=== PATIENT | female | born 1970 | race Caucasian/White ===

== ENCOUNTER 2017-10-15 09:39 | Emergency (ER) | payer BC, OTHER ==
[~2017-10-15] VITALS: Ht 152.4 cm; Wt 58.2 kg
[2017-10-15 09:44] VITALS: TEMP 36.4; Ht 152.4 cm; Wt 58.2 kg
[2017-10-15] MEDS ORDERED: KETOROLAC TROMETHAMINE 30 MG/ML VIAL IV STA (10:05)
[2017-10-15] MEDS ORDERED: FLX/5 PO (10:10)
[2017-10-15 10:30] LABS: BASO % 0.2 %; BASO ABS # 0.01 K/uL (0-0.2); EOS % 1.6 %; EOS ABS # 0.09 K/uL (0-0.5); HEMATOCRIT 38.4 % (37-47); HEMOGLOBIN 13.2 g/dL (12.0-16.0); IG# 0.01 K/uL (0.00-0.02); LYMPH % 22.5 %; LYMPH ABS # 1.23 K/uL (1.2-3.4); MEAN CELL VOLUME 88.7 fL (80-100); MEAN CORPUSCULAR HEMOGLOBIN 30.5 pg (25-34); MEAN CORPUSCULAR HGB CONC 34.4 g/dl (32-36); MEAN PLATELET VOLUME 9.3 fL (7.4-10.4); MONO ABS # 0.44 K/uL (0.11-0.59); NEUT % 67.5 %; NEUT ABS # 3.69 K/uL (1.4-6.5); PLATELET COUNT 160 K/uL (130-400); RED CELL DISTRIBUTION WIDTH CV 13.8 % (11.5-14.5); WHITE BLOOD COUNT 5.47 K/uL (4.8-10.8)
[2017-10-15 10:47] LABS: ALBUMIN 3.4 gm/dl (3.4-5.0); ALT/SGPT 18 U/L (12-78); AST/SGOT 14 U/L (15-37); BLOOD UREA NITROGEN 19 mg/dl (7-18); CALCIUM 8.7 mg/dl (8.5-10.1); CARBON DIOXIDE 26 mmol/L (21-32); CREATININE 0.87 mg/dl (0.60-1.20); GLUCOSE 94 mg/dl (70-99); SODIUM 140 mmol/L (136-145)
[2017-10-15 10:52] LABS: ALKALINE PHOSPHATASE 38 U/L (45-117); TOTAL PROTEIN 6.3 gm/dl (6.4-8.2)
--- NOTE | 2017-10-15 11:31 | DIAGNOSTIC IMAGING REPORT ---
MRI LUMBAR SPINE W/O CONTRAST CLINICAL HISTORY: Severe low back pain with left leg radiculopathy. Difficulty with ambulation. Syncope due to extreme pain. TECHNIQUE: Sagittal and axial T1, T2 and STIR images were obtained. COMPARISON STUDY: No previous studies for comparison. OBSERVATIONS: On the sagittal images there is a right adnexal fluid fluid level, likely secondary to a hemorrhagic ovarian cyst. The vertebral bodies and posterior elements appear intact. There is no abnormal bony signal present to suggest a marrow replacement process. L1-2: No disc protrusions or extrusions. No evidence of spinal canal or neural foraminal compromise. L2-3: No disc protrusions or extrusions. No evidence of spinal canal or neural foraminal compromise. L3-4: No disc protrusions or extrusions. No evidence of spinal canal or neural foraminal compromise. L4-5: There is a mild circumference of disc bulge. There is a slight triangular configuration of the thecal sac. There is no significant foraminal narrowing L5-S1: There is a small central disc protrusion asymmetric to the left. There is no spinal stenosis. There is minimal left-sided foraminal narrowing. The conus medullaris and cauda equina appear normal. IMPRESSION: 1. Mild multilevel spondylitic changes. Mild circumferential disc bulge at the L4-5 level. Small disc protrusion slightly asymmetric to the left at the L5-S1 level.. Minimal left-sided foraminal narrowing at the L5-S1 level 2. Partially visualized right adnexal fluid fluid level, likely secondary to a hemorrhagic ovarian cyst Electronically signed by: Sadi Keita M.D. 10/15/2017 11:29 AM Dictated Date/Time: 10/15/2017 11:22 AM
[2017-10-15] MEDS ORDERED: OXYC1TAB3 PO (11:50)
[2017-10-15] MEDS ORDERED: DEXAMETHASONE **PF** INJ 10 MG/ML VIAL IV STA (11:51)
[2017-10-15] MEDS ORDERED: METH4PAK PO (11:52)
[2017-10-15] MEDS ORDERED: CYCL5TAB PO (11:52)
--- NOTE | 2017-10-15 11:53 | EMERGENCY ROOM VISIT NOTE ---
History First contact with patient: 09:48 Chief Complaint: BACK PAIN Stated Complaint: SEVERE BACK PAIN - PASSED OUT History of Present Illness The patient is a 47 year old female who presents to the Emergency Room via private vehicle accompanied by with complaints of "severe back painpassed out". Patient notes a past history of low back pain for the past 5 years. She was told she has a Schmorl's node but no other findings to explain her pain. She states that it seems to have worsened over the past 1.5 weeks. She has been trying to do yoga without relief for the pain. She states yesterday it was quite painful and she saw her chiropractor last night she states that she could not move her sleep secondary to the pain. This morning she went to sit on the toilet and passed out because of the pain. She rates her overall pain is a 7.5/10. She denies any lower extremity weakness, bowel or bladder incontinence, or numbness or tingling in the genital region. Review of Systems A complete 10-point Review of Systems was discussed with the patient, with pertinent positives and negatives listed in the History of Present Illness. All remaining Review of Systems questions can be considered negative unless otherwise specified. Past Medical/Surgical History Low back pain. ASD, cataracts Family History No pertinent. Social History Smoking Status: Never Smoker Marital Status: Occupation Status: employed Patient lives locally with her . Current/Historical Medications Scheduled Cyclobenzaprine Hcl (Flexeril), 5 MG PO TID Methylprednisolone (Medrol Dosepak), 0 PO DAILY Scheduled PRN Cyclobenzaprine HCl (Cyclobenzaprine HCl), 5 MG PO DAILY PRN for Muscle Spasms Oxycodone Ir (Roxicodone Ir), 1 TAB PO Q6 PRN for Pain Physical Exam Vital Signs Date Time Temp Pulse Resp B/P (MAP) Pulse Ox O2 Delivery O2 Flow Rate FiO2 10/15/17 12:11 73 18 100/63 100 10/15/17 11:30 70 18 104/61 98 Room Air 10/15/17 09:44 36.4 81 18 120/83 99 Room Air Physical Exam VITALS: Vitals are noted on the nurse's note and reviewed by myself. Vital signs stable. GENERAL: 47-year-old female, in no acute distress, nondiaphoretic, well- developed well-nourished. SKIN: The skin was without rashes, erythema, edema, or bruising. NECK: Supple without nuchal rigidity. No cervical spine tenderness. No paraspinous muscle tenderness. HEART: Regular rate and rhythm without murmurs gallops or rubs. LUNGS: Clear to auscultation bilaterally without wheezes, rales or rhonchi. ABDOMEN: Positive bowel sounds x 4. Soft, nontender, without masses or organomegaly. MUSCULOSKELETAL: No muscle atrophy, erythema, or edema noted of the back. There is tenderness over the lumbar spinous processes. There is positive tenderness over the paraspinous muscles of the lumbar spine. There is no tenderness over the thoracic spine or paraspinous muscles. There are no muscle spasms present. The patient is slow to move around with maximum tenderness with tenderness of the inferior lumbar spinous region. NEURO: Patient was alert and oriented to person place and time. Normal sensation to light and sharp touch. Deep tendon reflexes 2+ in the lower extremities. Strength 5/5 and equal in the bilateral lower extremities. Medical Decision & Procedures ER Provider Diagnostic Interpretation: MRI LUMBAR SPINE W/O CONTRAST CLINICAL HISTORY: Severe low back pain with left leg radiculopathy. Difficulty with ambulation. Syncope due to extreme pain. TECHNIQUE: Sagittal and axial T1, T2 and STIR images were obtained. COMPARISON STUDY: No previous studies for comparison. OBSERVATIONS: On the sagittal images there is a right adnexal fluid fluid level, likely secondary to a hemorrhagic ovarian cyst. The vertebral bodies and posterior elements appear intact. There is no abnormal bony signal present to suggest a marrow replacement process. L1-2: No disc protrusions or extrusions. No evidence of spinal canal or neural foraminal compromise. L2-3: No disc protrusions or extrusions. No evidence of spinal canal or neural foraminal compromise. L3-4: No disc protrusions or extrusions. No evidence of spinal canal or neural foraminal compromise. L4-5: There is a mild circumference of disc bulge. There is a slight triangular configuration of the thecal sac. There is no significant foraminal narrowing L5-S1: There is a small central disc protrusion asymmetric to the left. There is no spinal stenosis. There is minimal left-sided foraminal narrowing. The conus medullaris and cauda equina appear normal. IMPRESSION: 1. Mild multilevel spondylitic changes. Mild circumferential disc bulge at the L4-5 level. Small disc protrusion slightly asymmetric to the left at the L5-S1 level.. Minimal left-sided foraminal narrowing at the L5-S1 level 2. Partially visualized right adnexal fluid fluid level, likely secondary to a hemorrhagic ovarian cyst Electronically signed by: Sadi Keita M.D. 10/15/2017 11:29 AM Dictated Date/Time: 10/15/2017 11:22 AM Laboratory Results 10/15/17 10:17 Red Blood Count 4.33, Mean Corpuscular Volume 88.7, Mean Corpuscular Hemoglobin 30.5, Mean Corpuscular Hemoglobin Concent 34.4, Mean Platelet Volume 9.3, Neutrophils (%) (Auto) 67.5, Lymphocytes (%) (Auto) 22.5, Monocytes (%) (Auto) 8.0, Eosinophils (%) (Auto) 1.6, Basophils (%) (Auto) 0.2, Neutrophils # (Auto) 3.69, Lymphocytes # (Auto) 1.23, Monocytes # (Auto) 0.44, Eosinophils # (Auto) 0.09, Basophils # (Auto) 0.01 10/15/17 10:17 Test 10/15/17 10:17 10/15/17 10:45 White Blood Count 5.47 K/uL (4.8-10.8) Red Blood Count 4.33 M/uL (4.2-5.4) Hemoglobin 13.2 g/dL (12.0-16.0) Hematocrit 38.4 % (37-47) Mean Corpuscular Volume 88.7 fL (80-100) Mean Corpuscular Hemoglobin 30.5 pg (25-34) Mean Corpuscular Hemoglobin Concent 34.4 g/dl (32-36) Platelet Count 160 K/uL (130-400) Mean Platelet Volume 9.3 fL (7.4-10.4) Neutrophils (%) (Auto) 67.5 % Lymphocytes (%) (Auto) 22.5 % Monocytes (%) (Auto) 8.0 % Eosinophils (%) (Auto) 1.6 % Basophils (%) (Auto) 0.2 % Neutrophils # (Auto) 3.69 K/uL (1.4-6.5) Lymphocytes # (Auto) 1.23 K/uL (1.2-3.4) Monocytes # (Auto) 0.44 K/uL (0.11-0.59) Eosinophils # (Auto) 0.09 K/uL (0-0.5) Basophils # (Auto) 0.01 K/uL (0-0.2) RDW Standard Deviation 45.0 fL (36.4-46.3) RDW Coefficient of Variation 13.8 % (11.5-14.5) Immature Granulocyte % (Auto) 0.2 % Immature Granulocyte # (Auto) 0.01 K/uL (0.00-0.02) Anion Gap 5.0 mmol/L (3-11) Est Creatinine Clear Calc Drug Dose 63.1 ml/min Estimated GFR () 91.3 Estimated GFR (Non- 78.8 BUN/Creatinine Ratio 21.5 (10-20) Calcium Level 8.7 mg/dl (8.5-10.1) Total Bilirubin 0.4 mg/dl (0.2-1) Aspartate Amino Transf (AST/SGOT) 14 U/L (15-37) Alanine Aminotransferase (ALT/SGPT) 18 U/L (12-78) Alkaline Phosphatase 38 U/L (45-117) Troponin I < 0.015 ng/ml (0-0.045) Total Protein 6.3 gm/dl (6.4-8.2) Albumin 3.4 gm/dl (3.4-5.0) Globulin 2.9 gm/dl (2.5-4.0) Albumin/Globulin Ratio 1.2 (0.9-2) Urine Color YELLOW Urine Appearance CLEAR (CLEAR) Urine pH 5.5 (4.5-7.5) Urine Specific [place] 1.010 (1.000-1.030) Urine Protein NEG (NEG) Urine Glucose (UA) NEG (NEG) Urine Ketones NEG (NEG) Urine Occult Blood NEG (NEG) Urine Nitrite NEG (NEG) Urine Bilirubin NEG (NEG) Urine Urobilinogen NEG (NEG) Urine Leukocyte Esterase NEG (NEG) Medications Administered Medications (Trade) Dose Ordered Sig/Yemi Route Start Time Stop Time Status Last Admin Dose Admin Ketorolac Tromethamine (Toradol Inj) 30 mg NOW STAT IV 10/15/17 10:05 10/15/17 10:07 DC 10/15/17 10:32 30 MG Dexamethasone Sodium Phosphate (Dexamethasone Inj Pf) 10 mg NOW STAT IV 10/15/17 11:51 10/15/17 11:52 DC 10/15/17 11:56 10 MG Medical Decision Patient was seen and evaluated as above in room A9. She presents to us today with low back pain. There is no abdominal pain. Review was performed of nursing notes and vital signs. After obtaining a thorough history and physical examination the above work up was performed. CBC reveals no concerning leukocytosis or anemia. Metabolic panel does reveal likely dehydration with BUN at 19. She was informed upon this. Troponin negative. Urine negative. Bedside EKG per my interpretation reveals normal sinus rhythm, no ectopy or ischemic change. This was compared to EKG of October 02, 2010 and no significant change was found. Benefit versus risk of obtaining imaging was discussed. The decision was made to obtain an MRI of the low back secondary to her syncopal event today from the back pain, the amount of pain that she is presenting in, the ambulatory difficulties it is presenting, as well as her physical exam. Results as above. There are findings to explain her pain here today. No emergent process. This will be treated with a course of steroids, muscle relaxers and a short course of pain medication. No red flags in the [place] drug monitoring system. She is to follow with her family doctor/ spine or return with worsening. The patient was educated upon management, had questions answered prior to discharge, and was discharged home in good condition. In the evaluation and treatment of this patient the following differential diagnoses were entertained: Fracture, dislocation, cauda equina syndrome, acute intra-abdominal process, among others. Impression Primary Impression: Low back pain Departure Information Dispostion Home / Self-Care Condition GOOD Prescriptions Methylprednisolone (MEDROL DOSEPAK) 4 Mg Marcelino 0 PO DAILY, #1 PKT Prov: Ean Martinez PA-C 10/15/17 Cyclobenzaprine Hcl (FLEXERIL) 5 Mg Tab 5 MG PO TID for 5 Days, #15 TAB PRN Prov: Ean Martinez PA-C 10/15/17 Oxycodone Ir (Roxicodone Ir) 5 Mg Tab 1 TAB PO Q6 Y for Pain, #12 TAB For Initial Treatment Prov: Ean Martinez PA-C 10/15/17 Referrals Nelda JohnsonNSapna (PCP) [place] Dale D.O. Patient Instructions My [facility] Additional Instructions You have been treated in the Emergency Department for Back Pain. You have received pain medicine in the emergency department which impairs your ability to operate a vehicle. It is illegal for you to drive after receiving these medicines. You have been prescribed Oxy ir to be used for pain control. This is a narcotic medication. You cannot drive or consume alcohol while on this medicine. This medicine should only be used for pain that cannot be controlled with over-the- counter pain medicines. You have been prescribed Flexeril (cyclobenzaprine) 1-2 tabs orally, three times per day. Do NOT exceed 30 mg (6 tabs) per day. Take your first dose at bedtime as it can make you drowsy. Always take all medications as prescribed. For pain control, you can use the following [id number] medicines: - Regular strength (325mg/tab) Tylenol (acetaminophen) 2 tabs every 4-6 hours as needed. Do not exceed 12 tablets in a 24 hour period. Avoid taking more than 3 grams (3000 mg) of Tylenol per day. This includes any other sources of acetaminophen you may take on a regular basis. - Regular strength (200 mg/tab) Advil (ibuprofen) 1-2 tabs every 4-6 hours as needed. Do not exceed a dose of 3200 mg per day. If this is an acute injury, ice can be applied to the area of pain for the first 3 days to help decrease pain and inflammation. After the first 3 days, a heating pad can be used over the area for continued soothing relief. You should schedule a follow-up appointment in 2-3 days with your Primary Care Provider for further evaluation and treatment of your back pain. Return to the Emergency Department if your current symptoms worsen despite treatment course outlined above, or if you develop any of the following symptoms : intractable pain despite aforementioned treatment course, loss of control of your bowel or bladder, numbness or tingling in your groin, or development of a fever.
[2017-10-15 12:11] VITALS: BP 100/63; PULSE 73; O2SAT 100
== END 2017-10-15 12:12 | disposition home or self-care (01) ==
LOC: C.EDB 09:41 → C.EDA 12:12
DX: M54.5 Low back pain (principal); Q21.1 Atrial septal defect; H26.9 Unspecified cataract